=== PATIENT | female | born 1995 | race Caucasian/White ===

== ENCOUNTER 2019-01-07 15:17 | Outpatient (CLI) | payer OTHER ==
[~2019-01-07] VITALS: Ht 147.3 cm; Wt 92.8 kg
[2019-01-07 16:20] VITALS: Ht 147.3 cm; Wt 92.8 kg
[2019-01-07 16:21] VITALS: BP 99/65; PULSE 97; RESP 18
[2019-01-07] MEDS ORDERED: PNV11TAB PO (16:23)
--- NOTE | 2019-01-07 19:44 | TRIAGE ---
OB Triage Datetime Report Generated by CPN: 01/07/2019 19:43 Datetime: 01/07/2019 19:24 Stage of : OB Triage Datetime: 01/07/2019 18:52 Stage of : OB Triage Datetime: 01/07/2019 18:35 Labor Evaluation Frequency: 0 Monitor Mode: External Pattern: Normal: <= 5 Contractions in 10 Minutes Resting Tone [place]: Relaxed Heart Rate FHR Baseline Rate: 135 Monitor Mode: External US Variability: Moderate 6-25 bpm Accelerations: 10X10 Decelerations: None Category: Category I Pain Assessment Pain Scale: 0 Pain Presence: None/Denies Pain Type: N/A Pain Goal: 3 Pain Relief Measures: Comfort Measures Datetime: 01/07/2019 17:42 Stage of : OB Triage Datetime: 01/07/2019 16:14 Stage of : OB Triage Assessment Type: Triage Maternal Assessment Level of Consciousness: Fully Conscious DTR's/Clonus: DTRs 2+; No Clonus Headache: Denies Blurred Vision: No Respiratory Effort: Unlabored; Regular Rhythm; Equal Expansion Breath Sounds, Left: Clear and Equal Breath Sounds, Right: Clear and Equal Nausea/Vomiting: Denies RUQ Epigastric Pain: Denies Facial Edema: None Temperature Route: Axillary Fall Risk Assessment History of Falling: (0) No Secondary Diagnosis: (0) No Ambulatory Aid: (0) Bedrest/Nurse Assist IV Therapy: (0) No Gait: (0) Normal/Bedrest/Immobile Mental Status: (0) Oriented to Own Ability Fall Score: 0 Fall Risk Score Definition: No Risk: No action required Labor Evaluation Frequency: 0 Monitor Mode: External Pattern: Normal: <= 5 Contractions in 10 Minutes Resting Tone [place]: Relaxed Heart Rate FHR Baseline Rate: 150 Monitor Mode: External US Variability: Moderate 6-25 bpm Decelerations: None Pain Assessment Pain Scale: 0 Pain Presence: None/Denies Pain Type: N/A Pain Goal: 3 Pain Relief Measures: Comfort Measures Datetime: 01/07/2019 16:12 Time of Arrival: 01/07/2019 15:02 EGA: 37.4 Arrived By: Ambulatory Arrived From: Dr. Arboleda Chief Complaint: REFERRED FROM CLINIC FOR SIZE/DATES, DENIES LEAKING, BLEEDING, OR UC'S Movement: Present Contractions: Denies/Absent Rupture of Membranes: Denies Vaginal Bleeding: None Vaginal Discharge: Denies Recent Sexual Intercouse: Denies Abdominal Trauma: Not Applicable Time Provider Notified: 01/07/2019 17:42 Provider Notified: esperanza Initial Plan: MONITOR, U/S
--- NOTE | 2019-01-07 20:03 | HP ---
Date/Time of Note Date/Time of Note DATE: 01/07/19 TIME: 19:58 OB - History Hx of Present Free Text/Dictation 23 YO G1 with IUP at 37 weeks with EDC 01/24/2019. she was seen by Dr. Sims 6 days ago. records NA at this time. she reports good FM. she denies UC, LOF per vagina, or vaginal bleeding. she is sent here for antepartum testing for possible IUGR. NST is category one. Care: Good Care Ultrasounds: Normal mid trimester US Obstetrical Complications: None, Growth Restriction, Other (possible IUGR) Medical Complications: None Past Family/Social History * Past Medical, Surgical, Family and Obstetric Histories reviewed from chart. OB Admission Exam Vital Signs Vital Signs Vital Signs Date Temp Pulse Resp B/P (MAP) Pulse Ox O2 O2 Flow FiO2 Time Delivery Rate 01/07/19 98.2 97 18 99/65 (76) 16:21 Physical Exam HEENT: WNL Heart: Rhythm Normal Lungs: Clear, Equal Abdomen: WNL Extremities: Normal Reflexes: Normal OB Assessment/Plan Other Assessment: IUP at 37+ weeks here for antepartum testing for possible IUGR Plan: Other (may be discharged home. NST in 3 day. ) CARLEEN JACKSON MD Jan 07, 2019 20:03
== END 2019-01-07 19:35 | disposition home or self-care (01) ==
LOC: OBT 15:17 → L-D 15:19 → OBT 19:35
PROVIDERS: ATTEND Specialist
DX: O36.5930 Maternal care for other known or suspected poor fetal growth, third trimester, not applicable or unspecified (principal); Z3A.37 37 weeks gestation of pregnancy
CPT/HCPCS: 76815; 76818; Z7500; G0463

== ENCOUNTER 2019-01-13 18:36 | Outpatient (CLI) | payer OTHER ==
[~2019-01-13] VITALS: Ht 157.5 cm; Wt 64.8 kg
[~2019-01-13 18:36] MED LIST: PNV11TAB PO
[2019-01-13 18:51] VITALS: Ht 157.5 cm; Wt 64.8 kg
[2019-01-13] MEDS ORDERED: FERR134T PO (18:52)
--- NOTE | 2019-01-13 22:15 | TRIAGE ---
OB Triage Datetime Report Generated by CPN: 01/13/2019 22:14 Datetime: 01/13/2019 21:16 Stage of : OB Triage Labor Evaluation Frequency: 1-6 Monitor Mode: External Duration (sec)2399: 40-110 Quality: Mild Pattern: Normal: <= 5 Contractions in 10 Minutes Resting Tone [place]: Relaxed Heart Rate FHR Baseline Rate: 130 Monitor Mode: External US FHR Baseline Changes: No Baseline Change Variability: Moderate 6-25 bpm Accelerations: 15X15 Decelerations: None Category: Category I Datetime: 01/13/2019 21:15 Vaginal Exam Dilatation (cms): 0.0 Effacement (%): 50 Station: -2 Exam By: DANNY Womack Vaginal Bleeding: None Cervix, Consistency: Firm Cervix, Position: Posterior Datetime: 01/13/2019 21:00 Stage of : OB Triage Labor Evaluation Frequency: 2-6 Monitor Mode: External Duration (sec)2399: 50-130 Quality: Mild Pattern: Normal: <= 5 Contractions in 10 Minutes Resting Tone [place]: Relaxed Heart Rate FHR Baseline Rate: 130 Monitor Mode: External US Variability: Moderate 6-25 bpm Accelerations: 15X15 Decelerations: None Category: Category I Datetime: 01/13/2019 20:00 Stage of : OB Triage Labor Evaluation Frequency: 1-5 Monitor Mode: External Duration (sec)2399: 40-120 Quality: Mild Pattern: Normal: <= 5 Contractions in 10 Minutes Resting Tone [place]: Relaxed Heart Rate FHR Baseline Rate: 135 Monitor Mode: External US Variability: Moderate 6-25 bpm Accelerations: 15X15 Decelerations: None Category: Category I Datetime: 01/13/2019 19:35 Stage of : OB Triage Datetime: 01/13/2019 19:19 Stage of : OB Triage Datetime: 01/13/2019 19:17 Stage of : OB Triage Assessment Type: Triage Maternal Assessment Level of Consciousness: Fully Conscious DTR's/Clonus: DTRs 2+; No Clonus Headache: Denies Blurred Vision: No Respiratory Effort: Unlabored; Regular Rhythm; Equal Expansion Breath Sounds, Left: Clear and Equal Breath Sounds, Right: Clear and Equal Nausea/Vomiting: Denies RUQ Epigastric Pain: Denies Lower Extremities Edema: None Degree: None Upper Extremities Edema: None Degree: None Facial Edema: None Temperature Route: Oral Fall Risk Assessment History of Falling: (0) No Secondary Diagnosis: (0) No Ambulatory Aid: (0) Bedrest/Nurse Assist IV Therapy: (0) No Gait: (0) Normal/Bedrest/Immobile Mental Status: (0) Oriented to Own Ability Fall Score: 0 Fall Risk Score Definition: No Risk: No action required Pain Assessment Pain Scale: 4 Pain Presence: Intermittent Pain Type: Cramping; Ache Pain Location: Back Pain Relief Measures: Comfort Measures Datetime: 01/13/2019 19:02 Maternal Assessment Level of Consciousness: Fully Conscious DTR's/Clonus: DTRs 1+ Headache: Denies Blurred Vision: No Nausea/Vomiting: Denies RUQ Epigastric Pain: Denies Facial Edema: None Labor Evaluation Frequency: X1 Monitor Mode: External Duration (sec)2399: 50 Quality: Mild Pattern: Normal: <= 5 Contractions in 10 Minutes Resting Tone [place]: Relaxed Heart Rate FHR Baseline Rate: 135 Monitor Mode: External US Variability: Moderate 6-25 bpm Accelerations: 15X15 Decelerations: None Category: Category I Pain Assessment Pain Scale: 0 Pain Presence: None/Denies Pain Type: N/A Pain Goal: 3 Membrane Status: Intact Datetime: 01/13/2019 18:50 Assessment Type: Triage Maternal Assessment Level of Consciousness: Fully Conscious DTR's/Clonus: DTRs 2+; No Clonus Headache: Denies Blurred Vision: No Respiratory Effort: Unlabored; Regular Rhythm; Equal Expansion Breath Sounds, Left: Clear and Equal Breath Sounds, Right: Clear and Equal Nausea/Vomiting: Denies RUQ Epigastric Pain: Denies Lower Extremities Edema: None Degree: None Upper Extremities Edema: None Degree: None Facial Edema: None Fall Risk Assessment History of Falling: (0) No Secondary Diagnosis: (0) No Ambulatory Aid: (0) Bedrest/Nurse Assist IV Therapy: (0) No Gait: (0) Normal/Bedrest/Immobile Mental Status: (0) Oriented to Own Ability Fall Score: 0 Fall Risk Score Definition: No Risk: No action required Datetime: 01/13/2019 18:32 Time of Arrival: 01/13/2019 18:32 EGA: 38.3 Arrived By: Wheelchair Arrived From: Home Chief Complaint: PT CAME IN C/O SPOTTING THIS AM, VAGINAL PAIN AND DFM Movement: Decreased Contractions: Denies/Absent Rupture of Membranes: Denies Vaginal Discharge: Denies Recent Sexual Intercouse: Denies Abdominal Trauma: Not Applicable Additional Patient Complaints: NONE Initial Plan: NST AND BPP Datetime: 01/07/2019 16:14 Fall Score: 0 Fall Risk Score Definition: No Risk: No action required Datetime: 01/07/2019 16:12 EGA: 37.4
--- NOTE | 2019-01-13 23:15 | PN ---
Triage Information Date/Time 01/13/19 Reason for visit: Vag spotting / bleeding Weeks of Gestation 38w3d /Para Diabetes: none Hypertention: none Additional information c/o vaginal pain Objective BP 102/69, P100 R 18 T 98.4 Heart Rate: 140's Heart Rate Comments CAT I Contractions: >10 Minutes Apart Exam VE 0/0/-3 recked in 3hrs? no change Results/Medications Imaging Results BPP 05/23 PAL[place] 15 Disposition: Discharge Assessment/Plan A IUP 38w3d NIL vaginal pain with spotting P discharge home with routine labor instructions RTH prBETTY Welsh MD Jan 13, 2019 23:15
== END 2019-01-13 21:30 | disposition home or self-care (01) ==
LOC: OBT 18:36 → L-D 18:37 → OBT 19:50 → L-D 19:50 → OBT 21:30
PROVIDERS: ATTEND Specialist
DX: O26.93 Pregnancy related conditions, unspecified, third trimester (principal); O26.853 Spotting complicating pregnancy, third trimester; Z3A.38 38 weeks gestation of pregnancy
CPT/HCPCS: 76818; Z7500; G0463

== ENCOUNTER 2019-01-22 04:10 | Outpatient (CLI) | payer OTHER ==
[~2019-01-22] VITALS: Ht 157.5 cm; Wt 65.3 kg
[2019-01-22 04:10] VITALS: Ht 157.5 cm; Wt 65.3 kg
[~2019-01-22 04:10] MED LIST changes: +FERR134T PO
[2019-01-22 04:32] VITALS: BP 102/68; PULSE 81; RESP 17
--- NOTE | 2019-01-22 06:24 | PN ---
Triage Information Date/Time January 22, 2019 Reason for visit: Uterine contractions Weeks of Gestation 38w 2d /Para 1/0 Diabetes: none Hypertention: none Additional information PMHx: none. PSHx: none. NKDA Objective Vital Signs Date Temp Pulse Resp B/P (MAP) Pulse Ox O2 O2 Flow FiO2 Time Delivery Rate 01/22/19 98.2 81 17 102/68 Room Air 04:32 (79) Heart Rate: 120's Contractions: 6-10 Minutes Apart (sometimes closer at 3 to 5 minutes apart) Exam 40%/FT/-4 Results/Medications Imaging Results Pending BPP. Disposition: Discharge Assessment/Plan A: IUP at 38w 2d. Dates discrepancy as pt had an early US at 10 weeks which gives her a due date of 01/24 and the later US's all date her with a due date of 02/03. Early labor. P: BPP pending. If all fine then pt to be d/c'ed home and is to return when the contractions are a lot stronger and last longer or if she breaks her water. Offered the pt the ability to stay or to go and initially she wanted to stay and then she decided to go. She [place] close by. We will still work to get the hard c opy of her initial US. Reviewed labor precaution with the pt. HAILEE OSORIO MD Jan 22, 2019 06:24
== END 2019-01-22 07:58 | disposition home or self-care (01) ==
LOC: L-D 04:10 → OBT 04:10
PROVIDERS: ATTEND Specialist
DX: O60.03 Preterm labor without delivery, third trimester (principal); O26.843 Uterine size-date discrepancy, third trimester; Z3A.38 38 weeks gestation of pregnancy
CPT/HCPCS: 76818; Z7500; G0463

== ENCOUNTER 2019-01-23 22:29 | Outpatient (CLI) | payer OTHER ==
--- NOTE | 2019-01-23 23:49 | PN ---
Triage Information Date/Time Reason for visit: Uterine contractions Weeks of Gestation 23-year-old 1 para 0 at 38 weeks and 3 days of gestation with estimated date of delivery February 03, 2019 Patient presents with chief complaint of uterine contractions, she reports positive movement, denies any vaginal bleeding or leaking fluid /Para 1 para 0 Diabetes: none Hypertention: none Objective Heart Rate: 140's Heart Rate Comments heart rate tracing category 1 Contractions: 6-10 Minutes Apart Exam Cervix fingertip/30%/-3 per nurse Disposition: Discharge Assessment/Plan Patient is not in labor kick count instructions were given Labor precautions were given Patient instructed to follow-up with her own LABOR TRAINER in 1-2 days SEAN LAU MD Jan 23, 2019 23:49
--- NOTE | 2019-01-23 23:51 | TRIAGE ---
OB Triage Datetime Report Generated by CPN: 01/23/2019 23:51 Datetime: 01/23/2019 23:41 Stage of : OB Triage Datetime: 01/23/2019 23:21 Labor Evaluation Frequency: 4-7 Monitor Mode: External Duration (sec)2399: 70-90 Pattern: Normal: <= 5 Contractions in 10 Minutes Heart Rate FHR Baseline Rate: 120 FHR Baseline Changes: No Baseline Change Variability: Moderate 6-25 bpm Datetime: 01/23/2019 22:47 Stage of : OB Triage Assessment Type: Triage Vaginal Exam Dilatation (cms): 0.5 Effacement (%): 30 Station: -3 Exam By: MARIELOS Vaginal Bleeding: Scant Cervix, Consistency: Firm Cervix, Position: Midposition Presentation 'A': Cephalic Datetime: 01/23/2019 22:28 Time of Arrival: 01/23/2019 22:28 EGA: 38.3 Arrived By: Wheelchair Arrived From: Home Chief Complaint: UC'S SINCE 1999 Movement: Present Contractions: Regular Time Contractions Began: 01/23/2019 20:00 Contractions: Q6MIN Rupture of Membranes: Denies Vaginal Bleeding: Scant Vaginal Discharge: Denies Recent Sexual Intercouse: Denies Abdominal Trauma: Not Applicable Patient Complaints: Contractions Additional Patient Complaints: PATIENT SEEN ON 01/22/19 FOR SAME COMPLAINT Datetime: 01/22/2019 07:14 Stage of : OB Triage Labor Evaluation Frequency: 1-5 Monitor Mode: External Pattern: Normal: <= 5 Contractions in 10 Minutes Resting Tone [place]: Relaxed Heart Rate FHR Baseline Rate: 125 Monitor Mode: External US Variability: Moderate 6-25 bpm Accelerations: 15X15 Decelerations: None Category: Category I Pain Assessment Pain Scale: 1 Pain Presence: Intermittent Pain Type: Cramping Pain Location: Abdomen Pain Goal: 0 Pain Relief Measures: Comfort Measures Datetime: 01/22/2019 07:00 Labor Evaluation Frequency: 2-5 Monitor Mode: External Duration (sec)2399: 60-100 Pattern: Normal: <= 5 Contractions in 10 Minutes Heart Rate FHR Baseline Rate: 130 Monitor Mode: External US Variability: Moderate 6-25 bpm (Annotations: Period of minimal variability) Accelerations: 15X15 Decelerations: None Category: Category I Datetime: 01/22/2019 06:26 Resting Tone [place]: Relaxed Datetime: 01/22/2019 06:00 Labor Evaluation Frequency: 2-6 Monitor Mode: External Duration (sec)2399: 60-120 Pattern: Normal: <= 5 Contractions in 10 Minutes Heart Rate FHR Baseline Rate: 125 Monitor Mode: External US Variability: Moderate 6-25 bpm (Annotations: Periods of minimal variability) Accelerations: 15X15 Decelerations: None Category: Category I Datetime: 01/22/2019 05:51 Quality: Mild Resting Tone [place]: Relaxed Pain Assessment Pain Scale: 2 Pain Presence: Intermittent Pain Type: Contraction Pain Location: Abdomen; Back Pain Relief Measures: Comfort Measures Datetime: 01/22/2019 05:46 Vaginal Exam Dilatation (cms): 0.5 Effacement (%): 40 Station: -4 Exam By: Dr. Reiche Vaginal Bleeding: Scant Datetime: 01/22/2019 05:45 Quality: Mild Datetime: 01/22/2019 05:25 Pain Assessment Pain Scale: 10 Pain Presence: Intermittent Pain Type: Contraction Pain Location: Abdomen; Back Pain Relief Measures: Comfort Measures Datetime: 01/22/2019 05:00 Labor Evaluation Frequency: 5-10 Monitor Mode: External Duration (sec)2399: 90-150 Pattern: Normal: <= 5 Contractions in 10 Minutes Heart Rate FHR Baseline Rate: 125 Monitor Mode: External US Variability: Minimal - Undetectable to <=5 bpm Accelerations: 15X15 Decelerations: None Category: Category II Datetime: 01/22/2019 04:41 Vaginal Exam Dilatation (cms): 0.5 Effacement (%): 40 Station: -4 Exam By: Jelly Cook RN Cervix, Consistency: Moderate Cervix, Position: Midposition Datetime: 01/22/2019 04:32 Stage of : OB Triage Assessment Type: Triage Maternal Assessment Level of Consciousness: Fully Conscious DTR's/Clonus: DTRs 2+; No Clonus Headache: Denies Blurred Vision: No Respiratory Effort: Unlabored; Regular Rhythm; Equal Expansion Breath Sounds, Left: Clear and Equal Breath Sounds, Right: Clear and Equal Nausea/Vomiting: Denies RUQ Epigastric Pain: Denies Lower Extremities Edema: None Degree: None Upper Extremities Edema: None Degree: None Facial Edema: None Temperature Route: Oral Fall Risk Assessment History of Falling: (0) No Secondary Diagnosis: (0) No Ambulatory Aid: (0) Bedrest/Nurse Assist IV Therapy: (0) No Gait: (0) Normal/Bedrest/Immobile Mental Status: (0) Oriented to Own Ability Fall Score: 0 Fall Risk Score Definition: No Risk: No action required Comments: Patient states she feels active movement. Pain Assessment Pain Scale: 8 Pain Presence: Intermittent Pain Type: Contraction Pain Location: Abdomen; Back Pain Relief Measures: Comfort Measures Datetime: 01/22/2019 04:29 Monitor Mode: External (Annotations: applied) Quality: Mild Resting Tone [place]: Relaxed Monitor Mode: External US (Annotations: applied) Datetime: 01/22/2019 04:10 Time of Arrival: 01/22/2019 04:10 EGA: 38.2 Arrived By: Wheelchair Arrived From: Home Chief Complaint: contractions since 01/22/19 at 0300 Movement: Present Contractions: Irregular Contractions: Q3-5min per patient Rupture of Membranes: Denies Vaginal Bleeding: None Vaginal Discharge: Denies Recent Sexual Intercouse: Denies Abdominal Trauma: Not Applicable Patient Complaints: Contractions Additional Patient Complaints: EDC discrepancy between 01/24/19 and 02/03/19 Time Provider Notified: 01/22/2019 05:03 Provider Notified: Dr. De Leon Initial Plan: EFM x2, SVE Datetime: 01/13/2019 21:08 Stage of : OB Triage Datetime: 01/13/2019 19:17 Fall Score: 0 Fall Risk Score Definition: No Risk: No action required Datetime: 01/13/2019 18:50 Fall Score: 0 Fall Risk Score Definition: No Risk: No action required Datetime: 01/13/2019 18:32 EGA: 37.0 Time Provider Notified: 01/13/2019 18:32 Provider Notified: Datetime: 01/07/2019 16:14 Fall Score: 0 Fall Risk Score Definition: No Risk: No action required Datetime: 01/07/2019 16:12 EGA: 36.1
== END 2019-01-23 23:51 | disposition home or self-care (01) ==
LOC: OBT 22:29 → L-D 22:30 → OBT 23:51
PROVIDERS: ATTEND Specialist
DX: O62.9 Abnormality of forces of labor, unspecified (principal); Z3A.38 38 weeks gestation of pregnancy
CPT/HCPCS: G0463

== ENCOUNTER 2019-01-24 16:19 | Inpatient (IN) | payer OTHER ==
[~2019-01-24] VITALS: Ht 157.5 cm; Wt 64.5 kg
[2019-01-24] MEDS ORDERED: OXYTOCIN 30 UNITS/LR 500 ML IV PRN (17:00)
[2019-01-24] MEDS ORDERED: CARBOPROST 250 MCG INJ IM PRN (17:00)
[2019-01-24] MEDS ORDERED: BUTORPHANOL 2 MG INJ IV PRN (17:00)
[2019-01-24] MEDS ORDERED: LIDOCAINE 1% (MPF) 30 ML INJ INJ PRN (17:00)
[2019-01-24] MEDS ORDERED: BUTORPHANOL 1 MG INJ IV PRN (17:00)
[2019-01-24] MEDS ORDERED: MINERAL OIL 30ML CUP PO ONE (17:00)
[2019-01-24] MEDS ORDERED: OXYTOCIN 30 UNITS/LR 500 ML IV SCH ×3 (17:00)
[2019-01-24] MEDS ORDERED: MISOPROSTOL 200 MCG TAB PR PRN (17:00)
[2019-01-24] MEDS ORDERED: METHYLERGONOVINE 0.2 MG INJ IM PRN (17:00)
[2019-01-24] MEDS: LACTATED RINGER'S 1,000 ML IV SCH ×2 (17:51→20:00)
[2019-01-24 18:38] VITALS: BP 98/65; PULSE 88; RESP 18
[2019-01-24 19:02] VITALS: Ht 157.5 cm; Wt 64.5 kg
--- NOTE | 2019-01-24 19:55 | PREAC ---
Date/Time of Note Date/Time of Note DATE: 01/24/19 TIME: 19:54 Anesthesia Eval and Record Evaluation Time Pre-Procedure Interview DATE: 01/24/19 TIME: 19:54 Age 23 Sex female NPO: 8 hrs Preoperative diagnosis in labor Planned procedure Labor epidural Past Medical History Past Medical History: None Surgery & Anesthesia Issues No known issue Meds Anticoagulation: No Beta Jaylan within 24 hr: No Reason Beta Jaylan not given: Pt. not on B-Jaylan Reported Medications Ferrous Sulfate (Iron) 134 Mg Tablet, 134 MG PO, TAB 01/13/19 [id number] ( 19) 1 Each Tablet, 1 TAB PO DAILY, TAB 01/07/19 Current Medications Lactated Ringer's 1,000 ml @ 125 mls/hr Q8H IV Last administered on 01/24/19at 17:51; Admin Dose 125 MLS/HR; Start 01/24/19 at 16:32 Butorphanol Tartrate (Stadol) 1 mg Q2H PRN IV .PAIN; Start 01/24/19 at 17:00 Butorphanol Tartrate (Stadol) 2 mg Q2H PRN IV .PAIN; Start 01/24/19 at 17:00 Lidocaine (Xylocaine 1% (Mpf)) 30 ml ONCE PRN INJ .EPISIOTOMY; Start 01/24/19 at 17:00 Oxytocin/Lactated Ringer's 500 ml @ 500 mls/hr ONCE POST IV ; Start 01/24/19 at 17:00 Oxytocin/Lactated Ringer's 500 ml @ 125 mls/hr POST IV ; Start 01/24/19 at 17:00 Oxytocin/Lactated Ringer's 500 ml @ 0 mls/hr ONCE PRN IV .VAGINAL BLEEDING; Start 01/24/19 at 17:00 Methylergonovine Maleate (Methergine) 0.2 mg ONCE PRN IM .VAGINAL BLEEDING; Start 01/24/19 at 17:00 Carboprost Tromethamine (Hemabate) 250 mcg ONCE PRN IM .VAGINAL BLEEDING; Start 01/24/19 at 17:00 Misoprostol (Cytotec) 1,000 mcg ONCE PRN TN .VAGINAL BLEEDING; Start 01/24/19 at 17:00 Oxytocin/Lactated Ringer's 500 ml @ 0 mls/hr FOR AUGMENTATION IV ; Start 01/24/19 at 17:00 Meds reviewed: Yes Allergies Coded Allergies: No Known Allergy (Unverified , 01/22/19) Allergies Reviewed: Yes Labs/Studies Labs Reviewed: Reviewed by anesthesiologist Result Diagram: 01/24/19 1657 Laboratory Tests 01/24/19 16:57 Blood Bank Test 01/24/19 16:57 Antibody Screen NEGATIVE Blood Type O POSITIVE Rh Immune Globulin Candidate NO test: Positive Pre-procedure Exam Last vitals Vital Signs Date Temp Pulse Resp B/P (MAP) Pulse Ox O2 O2 Flow FiO2 Time Delivery Rate 01/24/19 98.3 88 18 98/65 (76) 18:38 Airway: Adequate mouth opening Mallampati: Mallampati II Teeth: Normal Lung: Normal Heart: Normal ASA Physical Status ASA physical status: 2 Emergency: None Planned Anesthetic Neuraxial: Epidural Pre-operative Attestations Prior to commencing anesthesia and surgery, the patient was re-evaluated, there was verification of: *The patient's identity *The results of appropriate recent lab work and preoperative vital signs *The above evaluation not changing prior to induction *Anesthetic plan, risk benefits, alternative and complications discussed with patient/family; questions answered; patient/family understands, accepts and wishes to proceed. EVENS WEEMS MD Jan 24, 2019 19:55
[2019-01-24] MEDS ORDERED: FENTAnyl 2MCG/ML-ROPIV 0.2% 100 ML ONE (19:59)
[2019-01-24] MEDS ORDERED: EPHEDrine SULFATE 50 MG/5 ML SYG IV PRN (20:00)
[2019-01-24] MEDS ORDERED: DIPHENHYDRAMINE 50 MG INJ IV PRN (20:00)
[2019-01-24] MEDS ORDERED: ONDANSETRON 4 MG INJ IV PRN (20:00)
[2019-01-24] MEDS ORDERED: NALOXONE (0.4 MG/ML) INJ IV PRN (20:00)
[2019-01-25] MEDS: LACTATED RINGER'S 1,000 ML IV SCH ×3 (00:51→10:16)
[2019-01-25] MEDS: FENTAnyl 2MCG/ML-ROPIV 0.2% 100 ML BAG EPI SCH ×2 (06:33→12:18)
[2019-01-25] MEDS ORDERED: MINERAL OIL LIGHT 10 ML VIAL TOP PRN (07:00)
[2019-01-25] MEDS ORDERED: AMPICILLIN 2 GM/NS (PMX) 100 ML IVPB ONE (10:30)
[2019-01-25] MEDS ORDERED: AMPICILLIN 1 GM/NS (PMX) 50 ML IVPB SCH (13:00)
--- NOTE | 2019-01-25 15:19 | HP ---
Date/Time of Note Date/Time of Note DATE: 01/25/19 TIME: 15:03 OB - History Hx of Present Free Text/Dictation 23 y.o primigravida presents OB triage with c/o leaking fluid since 01/24/1909/03/1500,with uc's 2-4 min apart, Initial VE 1-2/70/-2 EFM CAT I tracing, EFW 3968gm serial u/s was s<d rubella Ab equivocal 1hr GTT 150 f/b 3hr GTT nl Hb A1C 4.9 GBS status neg admitted for expectant management,poss pitocin augmentation. Chief Complaint: leaking fluid Estimated Due Date: Jan 24, 2019 : 1 Para: 0 Spontaneous : 0 Therapeutic : 0 Care: Good Care Ultrasounds: Normal mid trimester US Obstetrical Complications: None Medical Complications: None Past Family/Social History * Past Medical, Surgical, Family and Obstetric Histories reviewed from chart. Blood Type: O+ Rubella: not immune RPR/VDRL: Negative GBS Status: Negative HBsAG: Negative (equivocal) OB Admission Exam Vital Signs Vital Signs Vital Signs Date Temp Pulse Resp B/P (MAP) Pulse Ox O2 O2 Flow FiO2 Time Delivery Rate 01/24/19 98.3 88 18 98/65 (76) 18:38 Physical Exam HEENT: WNL Heart: Rhythm Normal Lungs: Clear, Equal Abdomen: WNL Extremities: Normal Reflexes: Normal Cervical Dilatation: other (1-2) Effacement: Other (70) Station: -2 Membranes: Ruptured Amniotic Fluid: Clear Heart Rate: 120's Accelerations: Accelerations Present Decelerations: No Decelerations Varibility: Moderate Contractions on Admission: < 5 Minutes Apart Intensity: Mild Last 72 hours Lab Results CBC & BMP 01/24/19 16:57 OB Assessment/Plan Reason for admission: rupture of membranes Other Assessment: IUP 40w Plan: Expectant Management, Other (poss pitocin augmentation) BETTY ARIAS MD Jan 25, 2019 15:15
--- NOTE | 2019-01-25 15:24 | LDN ---
Date/Time of Note Date/Time of Note DATE: 01/25/19 TIME: 15:20 Delivery Summary of normal female Weeks of Gestation 40w1d Placenta Delivered: Spontaneously, Intact & Complete Meconium: none Episiotomy: Yes Indication for episiotomy expected lacerartion EFW [id number] Perineal laceration: 0 Laceration repair: 00ch gut Anesthesia type: Epidural Estimated blood loss: 200 Sponge & Needle done & correct: Yes All needle counts correct: Yes Any foreign bodies felt in the: No Infant Delivery Information Sex Infant Sex: female Apgars 1 Minute: 8 5 Minute: 9 Suctioning Nose & mouth suctioned at ericka: Yes Delee suction performed: Yes Umbilical Cord Umbilical cord with: 3 Vessels Cord presentations: no nuchal cord Cord Blood was obtained: Yes Mother & Baby Disposition Disposition Mom & Baby to Maternity; Good: Yes Mom transferred to: Other Baby to NICU: No () BETTY ARIAS MD Jan 25, 2019 15:24
[2019-01-25] MEDS ORDERED: OXYTOCIN 30 UNITS/LR 500 ML IV PRN (15:30)
[2019-01-25] MEDS ORDERED: WITCH HAZEL/GLYCERIN PAD PR PRN (15:30)
[2019-01-25] MEDS ORDERED: OXYCODONE/ASPIRIN (4.88/325) TAB PO PRN ×2 (15:30)
[2019-01-25] MEDS ORDERED: CARBOPROST 250 MCG INJ IM PRN (15:30)
[2019-01-25] MEDS ORDERED: MISOPROSTOL 200 MCG TAB PR PRN (15:30)
[2019-01-25] MEDS ORDERED: ZOLPIDEM 5 MG TAB PO PRN (15:30)
[2019-01-25] MEDS ORDERED: LANOLIN HPA 1 PKT TOP PRN (15:30)
[2019-01-25] MEDS ORDERED: METHYLERGONOVINE 0.2 MG INJ IM PRN (15:30)
[2019-01-25] MEDS ORDERED: BENZOCAINE 20% 56 ML SPRAY TOP PRN (15:30)
[2019-01-25] MEDS ORDERED: IBUPROFEN 600 MG TAB PO ONE (15:30)
[2019-01-25] MEDS ORDERED: MEASLES,MUMPS,RUBELLA VACCINE INJ SC* ONE ×2 (15:30→16:00)
[2019-01-25 18:00] VITALS: BP 105/58; PULSE 69; RESP 18
[2019-01-25] MEDS: IBUPROFEN 600 MG TAB PO SCH (18:00)
[2019-01-25] MEDS: OXYTOCIN 30 UNITS/LR 500 ML IV SCH ×2 (18:31→22:30)
[2019-01-25 20:00] VITALS: BP 115/60; PULSE 82; RESP 18
[2019-01-25] MEDS: SENNA/DOCUSATE NA (8.6MG/50MG) TAB PO SCH (21:28)
[2019-01-26] VITALS: BP 96/54; PULSE 80; RESP 18
[2019-01-26] MEDS: IBUPROFEN 600 MG TAB PO SCH ×5 (00:07→23:50)
[2019-01-26] MEDS: OXYTOCIN 30 UNITS/LR 500 ML IV SCH ×5 (02:30→22:30)
[2019-01-26 04:40] VITALS: BP 92/50; PULSE 80; RESP 18
[2019-01-26 08:30] VITALS: BP 89/51; PULSE 64; RESP 17
[2019-01-26] MEDS ORDERED: MEASLES,MUMPS,RUBELLA VACCINE INJ SC* ONE ×2 (09:00→19:00)
[2019-01-26] MEDS: SENNA/DOCUSATE NA (8.6MG/50MG) TAB PO SCH ×2 (09:07→21:01)
--- NOTE | 2019-01-26 11:37 | PAC ---
Date/Time of Note Date/Time of Note DATE: 01/26/19 TIME: 11:37 Post-Anesthesia Notes Post-Anesthesia Note Last documented vital signs Vital Signs Date Temp Pulse Resp B/P (MAP) Pulse Ox O2 O2 Flow FiO2 Time Delivery Rate 01/26/19 98.0 64 17 89/51 (64) Room Air 08:30 Activity: WNL Respiratory function: WNL Cardiovascular function: WNL Mental status: Baseline Pain reasonably controlled: Yes Hydration appropriate: Yes Nausea/Vomiting absent: Yes EVENS WEEMS MD Jan 26, 2019 11:37
[2019-01-26 16:35] VITALS: BP 96/64; PULSE 91; RESP 16
--- NOTE | 2019-01-26 16:45 | QN ---
Documentation Comment no b.m c/o afterpain Vss afebrile fundus firm lochia min calf neg for tenderness A s/p mod leukocytosis P repeat CBC at 1800 BETTY ARIAS MD Jan 26, 2019 16:45
[2019-01-26 20:00] VITALS: BP 95/60; PULSE 73; RESP 18
[2019-01-27] MEDS: OXYTOCIN 30 UNITS/LR 500 ML IV SCH ×2 (02:30→06:30)
[2019-01-27 04:10] VITALS: BP 111/58; PULSE 66; RESP 18
[2019-01-27] MEDS: IBUPROFEN 600 MG TAB PO SCH ×2 (06:08→12:20)
[2019-01-27 08:50] VITALS: BP 98/61; PULSE 80; RESP 14
[2019-01-27] MEDS ORDERED: DIPHTH/TET/ACEL PERTUSS (ADULT) 0.5 ML VIAL IM* ONE (09:00)
[2019-01-27] MEDS: SENNA/DOCUSATE NA (8.6MG/50MG) TAB PO SCH (09:21)
--- NOTE | 2019-01-27 15:18 | QN ---
Documentation Comment PPD# 2 is stable afebrile tolerates diet No VB +BM +voids Vs stable gen NAD Abd soft NT ND Genitalia No blood at perineum --->Discharge home SUMAN ABEL M.D. Jan 27, 2019 15:18
--- NOTE | 2019-01-27 15:19 | DS ---
Date/Time of Note Date/Time of Note DATE: 01/27/19 TIME: 15:19 Discharge Summary Admission/Discharge Info Admit Date/Time Jan 24, 2019 at 16:19 Discharge Date/Time 01/27/2019 Discharge Diagnosis Patient Condition: Good Hospital Course uneventful Home Meds Reported Medications Ferrous Sulfate (Iron) 134 Mg Tablet, 134 MG PO, TAB 01/13/19 [id number] ( 19) 1 Each Tablet, 1 TAB PO DAILY, TAB 01/07/[address] [facility] Pending Labs Laboratory Tests Test 01/26/19 18:03 White Blood Count 13.5 10^3/ul (4.8-10.8) Red Blood Count 3.50 10^6/ul (4.20-5.40) Hemoglobin 10.6 g/dl (12.0-16.0) Hematocrit 31.6 % (37.0-47.0) Mean Corpuscular Volume 90.3 fl (82.0-101.0) Mean Corpuscular Hemoglobin 30.3 pg (29.0-33.0) Mean Corpuscular Hemoglobin Concent 33.5 g/dl (32.0-37.0) Red Cell Distribution Width 13.9 % (11.5-14.5) Platelet Count 188 10^3/UL (140-415) Mean Platelet Volume 9.4 fl (7.4-10.4) Immature Granulocytes % 0.800 % (0.001-0.429) Neutrophils % 78.8 % (39.0-77.0) Lymphocytes % 13.9 % (15.0-51.0) Monocytes % 6.0 % (0.0-11.0) Eosinophils % 0.3 % (0.0-7.0) Basophils % 0.2 % (0.0-2.0) Nucleated Red Blood Cells % 0.0 /100WBC (0.0-0.0) Immature Granulocytes # 0.110 10^3/ul (0.0-0.031) Neutrophils # 10.6 10^3/ul (1.6-7.5) Lymphocytes # 1.9 10^3/ul (0.8-2.9) Monocytes # 0.8 10^3/ul (0.3-0.9) Eosinophils # 0.0 10^3/ul (0.0-0.5) Basophils # 0.0 10^3/ul (0.0-0.1) Nucleated Red Blood Cells # 0.0 10^3/ul (0.0-0.0) SUMAN ABEL M.D. Jan 27, 2019 15:19
--- NOTE | 2019-01-28 16:06 | DELSUM ---
Delivery Summary A-C Datetime Report Generated by CPN: 01/28/2019 16:06 DELIVERY PERSONNEL Fitting Room Supervisor: Sebunnya, Phoebe MATERNAL INFORMATION Delivery Anesthesia: Local; Epidural Medications in Delivery: LR 500ML PITOCIN 30 UNITS Delivery QBL (ml): 200 Placenta Cultured: No Maternal Complications: Prolong Labor >20Hrs; None LABOR SUMMARY EDC: 02/03/2019 00:00 No. Babies in Womb: 1 Attempted: No Labor Anesthesia: Epidural LABOR INFORMATION Reason for Induction: Not Applicable Onset of Labor: 01/24/2019 15:00 Complete Dilatation: 01/25/2019 13:58 Oxytocin: Augmentation Group B Beta Strep: Negative Antibiotics # of Doses: 1 Antibiotics Time of Last Dose: 01/25/2019 10:50 Steroids Given: None Reason Steroids Not Administered: Not Applicable MEMBRANES Membranes Rupture Method: Spontaneous Rupture of Membranes: 01/24/2019 15:00 Length of Rupture (hr): 23.42 Amniotic Fluid Color: Clear Amniotic Fluid Amount: Moderate Amniotic Fluid Odor: Normal STAGES OF LABOR Stage 1 hr: 22 Stage 1 min: 58 Stage 2 hr: 0 Stage 2 min: 27 Stage 3 hr: 0 Stage 3 min: 1 Total Time in Labor hr: 23 Total Time in Labor min: 26 VAGINAL DELIVERY Episiotomy: Median Laceration Extension: N/A Laceration Type: None Laceration Repair: Not Applicable Initial Vag Sponge Count: 10 Final Vag Sponge Count: 10 Initial Vag Sharps Count: 2 Final Vag Sharps Count: 2 Sharps Count Correct: Yes BABY A INFORMATION Infant Delivery Date/Time: 01/25/2019 14:25 Method of Delivery: Vaginal Born in Route : No : N/A Forceps: N/A Vacuum Extraction: N/A Shoulder Dystocia : N/A SHOULDER DYSTOCIA BABY A Delivery Date/Time: 01/25/2019 14:25 PRESENTATION/POSITION BABY A Presentation: Cephalic Cephalic Presentation: Vertex Vertex Position: Left Occipital Anterior Breech Presentation: N/A PLACENTA INFORMATION BABY A Placenta Delivery Time : 01/25/2019 14:26 Placenta Method of Delivery: Expressed Placenta Status: Delivered SCORES BABY A Heart Rate 1 min: >100 bpm Resp Effort 1 min: Slow, Irregular Reflex Irritability 1 min: Cough/Sneeze/Pulls Away Muscle Tone 1 min: Active Motion Color 1 min: Body [place], Extremit Blue SCORE 1 MIN: 8 Heart Rate 5 min: >100 bpm Resp Effort 5 min: Good Cry Reflex Irritability 5 min: Cough/Sneeze/Pulls Away Muscle Tone 5 min: Active Motion Color 5 min: Body [place], Extremit Blue SCORE 5 MIN: 9 INFORMATION BABY A Gestational Age at Delivery: 38.5 Gestational Status: Early Term- 37- 38.6 Weeks Outcome : Liveborn Infant Condition : Stable Sex: Female IDENTIFICATION/MEDS BABY A ID Band Number: [id number] ID Band Location: Right Leg; Left Arm Sensor Applied: Yes Sensor Number: [id number] Sensor Location : Cord Clamp Vitamin K Given : Not Given Erythromycin Given: Not Given WEIGHT/LENGTH BABY A Infant Birthweight (gm): 3640 Weight (lb): 8 Weight (oz): 0 Length (in): 20.00 Length (cm): 50.80 CORD INFORMATION BABY A No. Cord Vessels: 3 Nuchal Cord : N/A Nuchal Cord- Other: 0 True Knot: 0 Cord Blood Taken: Yes Banking/Donate Info: NONE Infant Suction: Mouth; Nose ASSESSMENT BABY A Infant Complications: Multiple Variable Decels
== END 2019-01-27 15:20 | disposition home or self-care (01) | DRG 807 ==
LOC: L-D 16:19 → PP1 01-25 18:09
PROVIDERS: ADMIT Specialist; ATTEND Specialist
PROC: 10E0XZZ Delivery of Products of Conception, External Approach (ICD-10-PCS; principal; 2019-01-24)
PROC: 0W8NXZZ Division of Female Perineum, External Approach (ICD-10-PCS; 2019-01-24)
PROC: 3E033VJ Introduction of Other Hormone into Peripheral Vein, Percutaneous Approach (ICD-10-PCS; 2019-01-24)
DX: O48.0 Post-term pregnancy (principal); Z37.0 Single live birth; Z3A.40 40 weeks gestation of pregnancy
CPT/HCPCS: 76815; 85025; 85610; 85730; 86592; 86850; 86900; 86901; 87340; 99464; J0290; J2405; J2590; J3010; J7120